=== PATIENT | female | born 1990 | race American Indian/Alaskan Native ===

== ENCOUNTER → 2016-07-12 | Outpatient (CLI) | payer OTHER ==
[2016-07-12 16:53] LABS: URINE APPEARANCE CLEAR (CLEAR); URINE BILIRUBIN NEG (NEG); URINE COLOR YELLOW; URINE NITRITE NEG (NEG); URINE PH 6.5 (4.5-7.5); URINE SPECIFIC GRAVITY 1.021 (1.000-1.030); UROBILINOGEN NEG (NEG)
[2016-07-12 17:00] LABS: MANUAL MICROSCOPIC REQUIRED? NO; REVIEW REQ? NO
== END | disposition home or self-care (01) ==
LOC: C.LABSPEC 15:53
PROVIDERS: ATTEND Obstetrics & Gynecology
DX: O99.330 Smoking (tobacco) complicating pregnancy, unspecified trimester (principal); Z3A.00 Weeks of gestation of pregnancy not specified; F17.200 Nicotine dependence, unspecified, uncomplicated

== ENCOUNTER → 2016-07-18 | Outpatient (CLI) | payer OTHER ==
[2016-07-18 17:30] LABS: BASO % 0.3 %; BASO ABS # 0.02 K/uL (0-0.2); COMPLETE YES; HEMATOCRIT 33.7 % (37-47); IG% 0.2 %; LYMPH % 18.2 %; LYMPH ABS # 1.21 K/uL (1.2-3.4); MEAN CELL VOLUME 91.8 fL (80-100); MEAN CORPUSCULAR HEMOGLOBIN 31.6 pg (25-34); MEAN CORPUSCULAR HGB CONC 34.4 g/dl (32-36); MEAN PLATELET VOLUME 10.8 fL (7.4-10.4); MONO % 6.8 %; NEUT % 72.5 %; PLATELET COUNT 180 K/uL (130-400); RED BLOOD COUNT 3.67 M/uL (4.2-5.4); WHITE BLOOD COUNT 6.65 K/uL (4.8-10.8)
[2016-07-21 01:21] LABS: CHLAMYDIA TRACH RNA*** NOT DETECTED (NOT DETECTED); GC (NEIS GONORRHOEAE)RNA** NOT DETECTED (NOT DETECTED)
== END | disposition home or self-care (01) ==
LOC: C.LAB1850 16:20
PROVIDERS: ATTEND Obstetrics & Gynecology
DX: Z34.01 Encounter for supervision of normal first pregnancy, first trimester (principal); O99.330 Smoking (tobacco) complicating pregnancy, unspecified trimester; F17.200 Nicotine dependence, unspecified, uncomplicated

== ENCOUNTER → 2016-07-18 | Outpatient (CLI) | payer OTHER | END | disposition home or self-care (01) | LOC: C.PAPS 10:36 | PROVIDERS: ATTEND Obstetrics & Gynecology | DX: Z12.4 Encounter for screening for malignant neoplasm of cervix (principal) ==

== ENCOUNTER → 2016-09-05 | Outpatient (CLI) | payer OTHER ==
[~2016-09-05] MED LIST: PRENTAB26 PO
[2016-09-05 18:44] LABS: GTGD 50 Grams
== END | disposition home or self-care (01) ==
LOC: C.LAB1850 15:02
PROVIDERS: ATTEND Obstetrics & Gynecology
DX: Z34.01 Encounter for supervision of normal first pregnancy, first trimester (principal)

== ENCOUNTER → 2016-11-28 | Outpatient (CLI) | payer OTHER ==
[2016-11-28 15:41] LABS: HEMATOCRIT 37.9 % (37-47)
[2016-11-28 18:15] LABS: GTGD 50 Grams
== END | disposition home or self-care (01) ==
LOC: C.LAB1850 13:51
PROVIDERS: ATTEND Obstetrics & Gynecology
DX: Z34.01 Encounter for supervision of normal first pregnancy, first trimester (principal)

== ENCOUNTER → 2016-11-28 | Outpatient (CLI) | payer OTHER ==
[2016-11-28 16:28] LABS: URINE APPEARANCE CLOUDY (CLEAR); URINE BILIRUBIN NEG (NEG); URINE COLOR YELLOW; URINE NITRITE NEG (NEG); URINE PH 8.5 (4.5-7.5); URINE SPECIFIC GRAVITY 1.017 (1.000-1.030); UROBILINOGEN NEG (NEG)
[2016-11-28 16:30] LABS: MANUAL MICROSCOPIC REQUIRED? NO; REVIEW REQ? NO
== END | disposition home or self-care (01) ==
LOC: C.LABSPEC 15:56
PROVIDERS: ATTEND Obstetrics & Gynecology
DX: Z34.01 Encounter for supervision of normal first pregnancy, first trimester (principal)

== ENCOUNTER → 2017-01-16 | Outpatient (CLI) | payer OTHER | END | disposition home or self-care (01) | LOC: C.LABSPEC 18:02 | PROVIDERS: ATTEND Obstetrics & Gynecology | DX: Z34.03 Encounter for supervision of normal first pregnancy, third trimester (principal) ==

== ENCOUNTER 2017-02-22 16:08 | Outpatient (CLI) | payer OTHER ==
[2017-02-22] MEDS ORDERED: PATIENT'S ALLERGY INFO NEEDS ENTERED SCH (17:30)
[2017-02-22] MEDS ORDERED: CALCIUM CARBONATE 500 MG CHEWABLE PO PRN (17:30)
[2017-02-23] MEDS ORDERED: PRENTAB26 PO (10:25)
== END 2017-02-22 17:55 | disposition home or self-care (01) ==
LOC: C.OPB 16:08 → C.LD 16:08 → C.OPB 17:55
PROVIDERS: ATTEND Obstetrics & Gynecology
DX: O48.0 Post-term pregnancy (principal); Z3A.41 41 weeks gestation of pregnancy

== ENCOUNTER 2017-02-23 09:03 | Inpatient (IN) | payer OTHER ==
[~2017-02-23] VITALS: Ht 172.7 cm; Wt 67.6 kg
[2017-02-23] MEDS ORDERED: OXYTOCIN 30 UNITS/500ML NSS IV PRN ×2 (09:30→18:00)
[2017-02-23 09:56] LABS: HEMATOCRIT 36.8 % (37-47); MEAN CELL VOLUME 95.3 fL (80-100); MEAN CORPUSCULAR HEMOGLOBIN 33.7 pg (25-34); MEAN CORPUSCULAR HGB CONC 35.3 g/dl (32-36); MEAN PLATELET VOLUME 11.1 fL (7.4-10.4); PLATELET COUNT 150 K/uL (130-400); RED BLOOD COUNT 3.86 M/uL (4.2-5.4); WHITE BLOOD COUNT 10.39 K/uL (4.8-10.8)
[2017-02-23 10:05] VITALS: Ht 172.7 cm; Wt 67.6 kg
[2017-02-23] MEDS: LACTATED RINGER'S 1000ML 500 ML IV PRN ×2 (10:16→14:15)
[2017-02-23] MEDS ORDERED: PRENTAB26 PO (10:25)
[2017-02-23] MEDS ORDERED: FENTANYL 2MCG/ML ROPIV 1.25MG/ML 100ML BAG EPI ONE (13:59)
[2017-02-23] MEDS ORDERED: FENTANYL CITRATE INJ 50 MCG/1 ML 2 ML VIAL ONE (13:59)
[2017-02-23] MEDS ORDERED: BUPIVACAINE 0.25% 30 ML VIAL ONE ×2 (13:59→16:01)
[2017-02-23] MEDS ORDERED: EpHEDrine SULFATE INJ 50 MG/ML AMP ONE (13:59)
[2017-02-23] MEDS ORDERED: LACTATED RINGER'S 1000ML 500 ML IV PRN (14:39)
[2017-02-23] MEDS ORDERED: NALOXONE HCL INJ 1 MG in SODIUM CHLORIDE 0.9% 1000ML 1,000 ML IV PRN (14:39)
[2017-02-23] MEDS ORDERED: DiphenhydrAMINE HCL 50 MG/ML VIAL IV PRN (14:45)
[2017-02-23] MEDS ORDERED: FENTANYL 2MCG/ML ROPIV 1.25MG/ML 100ML BAG EPI PRN ×2 (14:45→16:15)
[2017-02-23] MEDS ORDERED: NALOXONE HCL INJ 0.4 MG/1 ML VIAL/CARP IV PRN (14:45)
[2017-02-23] MEDS ORDERED: NALBUPHINE HCL INJ 10 MG/ML AMP IV PRN (14:45)
[2017-02-23] MEDS ORDERED: ONDANSETRON INJ 2 MG/ML 2 ML VIAL IV PRN (14:45)
[2017-02-23] MEDS ORDERED: EpHEDrine SULFATE INJ 50 MG/ML AMP IV PRN (14:45)
[2017-02-23] MEDS ORDERED: HYDROCORTISONE ACETATE 25 MG SUPP PR PRN (18:00)
[2017-02-23] MEDS ORDERED: ACETAMINOPHEN 325 MG TAB PO PRN (18:00)
[2017-02-23] MEDS ORDERED: BENZOCAINE 20% AER SPR 82.5 GM CAN EXT PRN (18:00)
[2017-02-23] MEDS ORDERED: SUPERCREAM 0.870 % 15GM JAR EXT PRN (18:00)
[2017-02-23] MEDS ORDERED: LANOLIN OINT EXT PRN ×2 (18:00)
[2017-02-23] MEDS ORDERED: ACETAMINOPHEN/CODEINE 300/30MG TAB PO PRN ×2 (18:00)
--- NOTE | 2017-02-23 18:11 | Vaginal Delivery Summary ---
Vaginal Delivery Summary 26 yo female EGA 41+3 weeks presented for induction of labor due to post- term . Pt progressed to complete under epidural anesthesia and then began to push, delivering a viable female from the JEREMIAH presentation. No nuchal cord. Nose and mouth were suctioned, a spontaneous cry was heard, and the was placed onto the mother's abdomen for stimulation. Delayed cord clamping was performed at the 30 second denise, then double clamped and cut. Cord blood obtained. The placenta was then delivered spontaneously intact with a three-vessel cord. Pitocin was given and the uterus became firm. The vagina was cleared of all clots and debris. The cervix, vagina, and perineum were inspected. A first degree right labial laceration as well as a right sulcus laceration were repaired with 3-O chromic suture. Excellent hemostasis was noted. Sponge, instrument, and needle counts were correct x2 at the conclusion of delivery. The mother and baby began recovery in the room, both in stable and good condition. APGARs were 9 and 9. EBL 300 mL. - Kosta, PGY1 Resident Tracking Resident Involvement: Resident Care Provided Care Provided: OB Delivery (vaginal delivery)
--- NOTE | 2017-02-23 18:48 | Anesthesia Procedure Note ---
Anesthesia Epidural Removal Nt Date & Time Feb 23, 2017 at 18:48 Vital Signs Pain Intensity: 0.0 Notes Mental Status: alert / awake / arousable, participated in evaluation Nausea / Vomiting: adequately controlled Pain: adequately controlled Airway Patency, RR, SpO2: stable & adequate BP & HR: stable & adequate Hydration State: stable & adequate Neuraxial Anesthesia: was administered Anesthetic Complications: no major complications apparent, pt satisfied with anesthetic care Epidural: removed without complications, with tip intact
[2017-02-23 20:05] VITALS: BP 103/79; PULSE 102; TEMP 36.6
[2017-02-23] MEDS: IBUPROFEN 600 MG TAB PO PRN (21:59)
[2017-02-23] MEDS: DOCUSATE SODIUM 100 MG CAP PO SCH (22:00)
[2017-02-23 23:20] VITALS: BP 120/64; PULSE 84; TEMP 36.8
--- NOTE | 2017-02-23 23:59 | DELIVERY SUMMARY ---
DATE OF OPERATION: 02/23/2017 The patient is a 26-year-old 1, P0 white female, EDC of 02/13/2017, who presented for induction of labor because of post term . She received a cervical balloon was placed the night before induction and presented at 4 cm dilated. She received Pitocin augmentation of labor. Membranes were ruptured at 5 cm. She received effective epidural analgesia and proceeded to full dilation. She pushed effectively for only 10 minutes over intact perineum. The infant was delivered without difficulty. There was vigorous crying and the infant was moving all 4 limbs, was placed on the mother's abdomen for further attention and stimulation. The cord was clamped after 30 seconds and cord blood was obtained. The placenta was then expressed intact with a 3-vessel cord. A first degree right labial laceration was repaired with 3-0 chromic as was a right sulcal laceration. Several additional [id number] stitches were placed in the sulcal tear to control subcutaneous bleeding. Hemostasis was excellent at the end of the case. The blood loss was 300 mL. Uterine bleeding was controlled with dilute Pitocin. I attest to the content of the Intraoperative Record and any orders documented therein. Any exceptions are noted below. MTDD
[2017-02-24 04:00] VITALS: BP 104/61; PULSE 67; TEMP 36.9
[2017-02-24] MEDS: IBUPROFEN 600 MG TAB PO PRN ×4 (04:09→20:22)
--- NOTE | 2017-02-24 06:20 | Progress Note ---
Subjective Feb 24, 2017. Subjective conversation w/ patient, physical exam Ambulation: ambulating normally Voiding: no voiding problems Passing Gas: Yes Diet Tolerance: Regular Diet Lochia: Moderate Feeding Type: Breast Feeding Review of Systems Breast: No see HPI, No breast lump, No change in shape, No nipple discharge, No breast pain, No problem reported Female : No see HPI, No dysuria, No urinary frequency, No hematuria, No incontinence, No abnormal vaginal bleeding, No vaginal discharge, No problem reported Objective Vital Signs Date Time Temp Pulse Resp B/P (MAP) Pulse Ox O2 Delivery O2 Flow Rate FiO2 02/24/17 04:00 36.9 67 18 104/61 (75) Room Air 02/23/17 23:20 36.8 84 84 120/64 (82) Room Air 02/23/17 23:20 Room Air 02/23/17 20:05 36.6 102 20 103/79 (87) Room Air 02/23/17 20:05 Room Air Physical Exam General Appearance: WELL-APPEARING, NO APPARENT DISTRESS Abdomen: non tender, soft Fundus: Firm, Non-Tender, Relation to Umbilicus (at U) Extremities: no calf tenderness Laboratory Results Last 24 Hours Test 02/23/17 09:39 02/24/17 04:44 White Blood Count 10.39 K/uL Red Blood Count 3.86 M/uL Hemoglobin 13.0 g/dL Hematocrit 36.8 % Mean Corpuscular Volume 95.3 fL Mean Corpuscular Hemoglobin 33.7 pg Mean Corpuscular Hemoglobin Concent 35.3 g/dl RDW Standard Deviation 44.0 fL RDW Coefficient of Variation 12.8 % Platelet Count 150 K/uL Mean Platelet Volume 11.1 fL Assessment and Plan Day#: 1 Continue Routine Care: stable course continue current care plan
[2017-02-24 06:40] LABS: HEMATOCRIT 34.9 % (37-47)
[2017-02-24 07:44] VITALS: BP 102/59; PULSE 72; TEMP 36.8; O2SAT 97
[2017-02-24] MEDS: DOCUSATE SODIUM 100 MG CAP PO SCH ×2 (09:07→20:21)
[2017-02-24] MEDS: PRENATAL VITAMIN TAB PO SCH (09:07)
[2017-02-24 12:05] VITALS: BP 110/73; PULSE 81; TEMP 36.6; O2SAT 98
[2017-02-24 15:45] VITALS: BP 108/73; PULSE 82; TEMP 36.8; O2SAT 99
[2017-02-24] MEDS ORDERED: BISACODYL 5 MG TABEC PO SCH (20:00)
[2017-02-24 23:25] VITALS: BP 97/56; PULSE 62; TEMP 36.6; O2SAT 98
[2017-02-25] MEDS ORDERED: BISACODYL 10 MG SUPP PR PRN (07:00)
[2017-02-25] MEDS: DOCUSATE SODIUM 100 MG CAP PO SCH (08:02)
[2017-02-25] MEDS: PRENATAL VITAMIN TAB PO SCH (08:02)
[2017-02-25] MEDS: IBUPROFEN 600 MG TAB PO PRN (08:04)
[2017-02-25 09:00] VITALS: BP 111/61; PULSE 87; TEMP 37.1
--- NOTE | 2017-02-25 09:32 | Progress Note ---
Subjective Feb 25, 2017. Subjective conversation w/ patient, physical exam Ambulation: ambulating normally Voiding: no voiding problems Passing Gas: Yes Diet Tolerance: Regular Diet Lochia: Moderate Feeding Type: Breast Feeding Review of Systems Constitutional: No problem reported Respiratory: No problem reported Cardiac: No problem reported Breast: No problem reported Abdomen: No problem reported Female : No problem reported Objective Vital Signs Date Time Temp Pulse Resp B/P (MAP) Pulse Ox O2 Delivery O2 Flow Rate FiO2 02/24/17 23:25 36.6 62 18 97/56 (70) 98 Room Air 02/24/17 23:25 98 Room Air 02/24/17 15:45 Room Air 02/24/17 15:45 36.8 82 20 108/73 (85) 99 Room Air 02/24/17 12:05 Room Air 02/24/17 12:05 36.6 81 18 110/73 (85) 98 Room Air Physical Exam General Appearance: WELL-APPEARING, NO APPARENT DISTRESS Respiratory/Chest: no respiratory distress Cardiovascular: regular rate, rhythm Abdomen: non tender, soft Fundus: Firm Extremities: normal inspection Assessment and Plan Post- Day#: 2 Continue Routine Care: Doing well, discharge to home today. Followup in office 6w. Discharge instructions discussed.
--- NOTE | 2017-02-25 09:33 | Discharge Instructions ---
Discharge Instructions Date of Service Feb 25, 2017. Admission Reason for Admission: Induction Discharge Discharge Diagnosis / Problem: vaginal delivery Discharge Goals Goal(s): Routine recovery after delivery Activity Recommendations Activity Limitations: per Instructions/Follow-up section . Instructions / Follow-Up Instructions / Follow-Up ACTIVITY RECOMMENDATIONS: * Gradual return to full activity over the next 2-3 weeks. * No lifting - nothing heavier than baby over the next 2-3 weeks. * Do not engage in vigorous exercise, sexual activity or sports until cleared by your physician. * Do not drive or operate any motorized equipment until cleared by your physician. * You may shower/bathe daily. MEDICATIONS: For discomfort or pain, you may use Acetaminophen (Tylenol), Ibuprofen (Advil), or Naproxen (Aleve) following the package directions. For constipation you may use Colace following the package directions. BREAST CARE: If you are not breast feeding: * Wear a supportive bra 24 hours a day for one to two weeks. * Avoid stimulating your breasts and nipples as much as possible during the first few weeks after delivery. * When taking a shower, have the warm water hit your back, not breasts. * When your breasts feel full, apply ice packs. Usually three to four times a day helps ease the discomfort. * Take a mild pain medication (Tylenol / Motrin) when you are uncomfortable. If breast feeding: * Use breast milk to lubricate nipples. Lansinoh cream may be used for sore nipples. You do not need to remove cream prior to breast feeding. If using a different brand of cream, check the label for directions regarding removal of cream prior to nursing. * Wear a supportive bra. * If having problems with breasts or breast feeding, call a fitness sales consultant or your health care provider. EPISIOTOMY CARE: After delivery, if you have an episiotomy (stitches), the following steps will ease discomfort and aid healing. * For the first 24 hours after delivery, place ice packs next to your episiotomy to help reduce swelling. * After the first 24 hour-period, sitz baths, either portable or in the tub, are suggested. A shower with a shower arm sprayed over the episiotomy may be comforting. * Christa care should be done after each voiding and bowel movement. Squirt warm water from a plastic bottle over the perineum (region of the body between the anus and urinary opening) and pat dry. * Use Dermoplast to ease discomfort. Shake container. Clawson directly over the episiotomy. Place a Tucks on a clean sanitary pad next to your episiotomy. SPECIAL CARE INSTRUCTIONS: When you are discharged from the hospital, it is important for you to follow the instructions listed below: * During the first week at home, you should be able to care for yourself and your baby. In addition, the usual light household activities are encouraged. * Limit your activities to the way you feel. Do not try to clean the house or move furniture. Be sensible. * If you actively engage in sports and have done so up until the time of your delivery, you may resume these activities as soon as you feel able. This may take up to one month or even longer. Use good judgment. * Continue to take your vitamins for at least six weeks after the of your baby. * Your diet need not be limited unless you were on a special diet before your delivery. Breast-feeding mothers need around 2500 calories per day and at least 64-80 ounces of fluid per day (8 to 10 glasses). * You should eat foods from the four major food groups. Crash diets or fad diets are to be avoided. Eating lean meats, fresh fruits and vegetables, low-fat dairy products, high fiber foods and a regular exercise program, will help you get back to your pre- weight without putting your health at risk. * Constipation is sometimes a problem after delivery. Take a mild laxative as needed. If breast feeding, Milk of Magnesia is acceptable to use. You may use a suppository or Fleets enema if no episiotomy. * A daily shower or tub bath is suggested. Be sure to thoroughly and gently dry the perineum. * A bloody vaginal discharge will usually continue until around four weeks post . A small amount of bleeding may continue for as long as six weeks. Vaginal discharge changes from the bright red bleeding after delivery to pink then brownish and finally yellowish-pink before becoming white and disappearing. * Bleeding may increase with activity. Your first period may come in 4-8 weeks. If you are breast feeding, your period may be delayed even longer. * [place] (sex) can begin whenever both you and your partner feel comfortable and do not have any form of genital infection. It is recommended that you wait at least six weeks for internal and external healing to occur. If you have questions, please talk to your health care practitioner. A condom should be used to prevent infection and . * Foreplay, gentle intercourse and lubrication is very important the first several times to prevent pain. A water-based lubricant such as K-Y jelly or Astroglide may be used. * If you have RH negative blood and your baby is RH positive, you will receive RHOGAM by injection prior to discharge. The nurse will give you a card to keep with you that has the date and place that you received RHOGAM after delivery. * During your care, you had a Rubella screen done to check for the presence of rubella antibodies in your blood. If your test was negative, you will receive a Rubella vaccine prior to discharge. This vaccine may cause a fever, soreness at the injection site and flu-like symptoms. If these symptoms persist, notify your health care practitioner. is not advised for one month after a Rubella vaccine. * Verbalizes understanding of car seat law as reviewed with patient nursing. * Car Seat hand-out given and reviewed with patient by nursing. * Shaken baby information reviewed with patient by nursing. Call you doctor if: * Heavy bleeding (saturating several pads an hour) or passing clots the size of your fist. * A fever >101 degrees F (38.3 degrees C) on two occasions four hours apart and /or chills. * Unusual pain in the pelvic or vaginal areas. * "Baby Blues" lasting longer than two weeks. If you have any questions or concerns, call your health care practitioner at . FOLLOW UP VISIT: * Please call the office at to schedule a 6 week examination. It is important you keep this appointment. It is important for you to make arrangements for either yearly or twice yearly check-ups thereafter. Current Hospital Diet Patient's current hospital diet: Regular OB Diet Discharge Diet Recommended Diet: Regular OB Diet Pending Studies Studies pending at discharge: no Medical Emergencies . Who to Call and When: Medical Emergencies: If at any time you feel your situation is an emergency, please call 911 immediately. . Non-Emergent Contact Non-Emergency issues call your: Primary Care Provider, Tuck Pointer Helper . . "Provider Documentation" section prepared by Savannah Mar. . VTE Core Measure Inpt VTE Proph given/why not?: Treatment not indicated
[2017-02-25 10:15] VITALS: BP_DIAS 61; PULSE 87; TEMP 37.1
== END 2017-02-25 10:25 | disposition home or self-care (01) | DRG 775 ==
LOC: C.LD 09:03 → C.OBG 20:15
PROVIDERS: ADMIT Obstetrics & Gynecology; ATTEND Obstetrics & Gynecology
PROC: 10E0XZZ Delivery of Products of Conception, External Approach (ICD-10-PCS; principal; 2017-02-23)
PROC: 0HQ9XZZ Repair Perineum Skin, External Approach (ICD-10-PCS; principal; 2017-02-23)
DX: O48.0 Post-term pregnancy (principal); O70.0 First degree perineal laceration during delivery; Z3A.41 41 weeks gestation of pregnancy; Z37.0 Single live birth

== ENCOUNTER 2020-08-20 08:08 | Inpatient (IN) ==
[2020-08-20] MEDS ORDERED: OXYTOCIN 30 UNITS/500 ML BAG IV PRN ×3 (08:51→16:02)
[2020-08-20] MEDS ORDERED: LACTATED RINGER'S 1,000 ML IV PRN (08:51)
[2020-08-20 09:36] LABS: Hematocrit (blood only) 36.2 % (37-47); Hemoglobin 12.3 g/dL (12.0-16.0); Mean Corpuscular Hemoglobin 32.1 pg (25-34); Mean Corpuscular Volume 94.5 fL (80-100); Mean Platelet Volume 10.9 fL (7.4-10.4); Platelet Count 196 K/uL (130-400); RDW Coefficient of Variation 12.7 % (11.5-14.5); RDW Standard Deviation 43.2 fL (36.4-46.3); Red Blood Count 3.83 M/uL (4.2-5.4); White Blood Count 7.66 K/uL (4.8-10.8)
--- NOTE | 2020-08-20 10:45 | History & Physical Report ---
Date of Service August 20, 2020 Assessment & Plan (1) Encounter for induction of labor: Admission and Anticipated Discharge Date Admission Date: August 20, 2020 IUP at 40+ weeks gestation presents for elective IOL begin pitocin induction of labor per protocol epidural when requested anticipate vaginal History of Present Illness Primary Care Provider: Delia Mobley MD Patient is a 29 yo white female who presents at 40 1/7 weeks for elective IOL. has jared uncomplicated so far. GBS (-) Blood type A (-) Allergies Allergy/AdvReac Type Severity Reaction Status Date / Time No Known Allergies Allergy Verified 08/20/20 08:58 Home Medications Medication Instructions Recorded Confirmed Type prenat.vits,adithya,ycs-[id number]-dizxn 1 tab PO DAILY 01/02/20 08/20/20 History Patient History Medical History Dehydration History of chicken pox Sinus tachycardia Surgical History S/P wisdom tooth extraction Family History Father Cataract Cancer squamous cell cancer of throat Denies family history of Ovarian cancer Breast cancer Colorectal cancer Social History Smoking Status: Current every day smoker Tobacco Type: Cigarettes Cigarettes Per Day: 10 cigs daily; Tobacco Cessation Education Requested by Patient: No Hx Alcohol Use: No Hx Substance Use: No Preferred Language: Nicaraguan Communication Ability: Effective Beliefs That Will Affect Care: None marital status: Single Current Living Situation: Significant Other Current Living Situation Comment: Rob, daughter (3) current occupational status: employed 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 Other Information That Helps Us Care for You: No Feels Safe at Home: Yes Safety Concerns: Feels Safe At This Time Assistive Devices: None Physical Exam Constitutional: WD/WN, vitals as above Respiratory: normal respiratory effort, lungs clear to auscultation Cardiovascular: RRR, no murmur, no edema Psychiatric: A+Ox3, euthymic affect Genitourinary: OB Exam Abdomen: + vertex and + estimated weight (7-8 pounds) Manual OB Exam: + cervical dilation 3 cm, + cervical effacement 70% and + station -1 OB Exam Monitor Tracing: + external FHT monitor used, + external uterine monitor used, + category I and + normal FHT variability Results & Data ([facility]) Vital Signs (Past 12 Hours) Vital Signs Temp Pulse Resp BP 08/20/20 09:54 83 116/58 L 08/20/20 09:27 91 H 111/58 L 08/20/20 08:22 98.4 F 20 08/20/20 08:21 107 H 128/84 Code Status & VTE Plan VTE Prophylaxis Plan VTE Prophylaxis will be ordered: No Coding Level of Care Code None Diagnoses Encounter for induction of labor Z34.90
[2020-08-20] MEDS ORDERED: CALCIUM CARBONATE 500 MG CHEWABLE TAB PO PRN (11:37)
[2020-08-20] MEDS ORDERED: CALCIUM CARBONATE 500 MG CHEWABLE TAB ONE (11:42)
[2020-08-20] MEDS ORDERED: SODIUM CHLORIDE 0.9% INJ 10 ML VIAL ONE (13:06)
[2020-08-20] MEDS ORDERED: BUPIVACAINE 0.25% 30 ML VIAL ONE (13:06)
[2020-08-20] MEDS ORDERED: ePHEDrine sulfate 50 MG/ML AMP ONE (13:06)
[2020-08-20] MEDS ORDERED: fentaNYL 2MCG/ML ROPIVACAINE 1.25MG/ML 100 ML BAG EPI ONE (13:07)
[2020-08-20] MEDS ORDERED: fentaNYL citrate 100 MCG/2 ML VIAL ONE (13:07)
[2020-08-20] MEDS ORDERED: diphenhydrAMINE 50 MG/ML VIAL IV PRN (13:12)
[2020-08-20] MEDS ORDERED: ONDANSETRON INJ 2 MG/ML 2 ML VIAL IV PRN (13:12)
[2020-08-20] MEDS ORDERED: NALOXONE HCL 1 MG in SODIUM CHLORIDE 0.9% 1000ML 1,000 ML IV PRN (13:12)
[2020-08-20] MEDS ORDERED: ePHEDrine sulfate 50 MG/ML AMP IV PRN (13:12)
[2020-08-20] MEDS ORDERED: NALOXONE HCL 0.4 MG/1 ML VIAL/CARP IV PRN (13:12)
[2020-08-20] MEDS ORDERED: fentaNYL 2MCG/ML ROPIVACAINE 1.25MG/ML 100 ML BAG EPI PRN (13:12)
--- NOTE | 2020-08-20 13:13 | Anesthesiology Consultation ---
Date of Service August 20, 2020 Assessment & Plan (1) Encounter for pre-operative examination: Chart Review Chart Review: Patient NOT seen in Pre Admission Testing and Acceptable Risk for Labor Epidural Consults Requested none History Height/Weight Height: 5 ft 8 in Weight: 64.41 kg Allergies Allergy/AdvReac Type Severity Reaction Status Date / Time No Known Allergies Allergy Verified 08/20/20 08:58 Medications Home Medications Medication Instructions Recorded Confirmed Last Taken prenat.vits,adithya,[id number]-[id number] 1 tab PO DAILY 01/02/20 08/20/20 08/19/20 22:00 Active Medications Generic Name Dose Route Start Last Admin Trade Name Freq PRN Reason Stop Dose Admin Oxytocin 30 units in 500 mls @ 11 mls/hr 08/20/20 08:53 08/20/20 12:50 Pitocin IV 08/22/20 08:52 0.66 units/hr .Q24H PRN 11 mls/hr Labor Induction/Augmentation Titration Protocol 0.66 UNITS/HR Lactated Ringer's 1,000 mls @ 125 mls/hr 08/20/20 08:51 08/20/20 09:59 Lr IV 08/22/20 08:50 125 mls/hr .Q8H PRN Administration L&D Protocol Protocol Past Medical History Medical History Dehydration History of chicken pox Sinus tachycardia Exercise / Class Metabolic Activity II 4-5 Yardwork/Stairs/Walk up hill Past Family History Family History Father Cataract Cancer squamous cell cancer of throat Denies family history of Ovarian cancer Breast cancer Colorectal cancer Past Surgical History Surgical History S/P wisdom tooth extraction Past Anesthesia History No Hx of Anesthesia Complications and No Family Hx of Anesthesia Complications History of PONV No Hx of PONV Social History Smoking Status: Current every day smoker tobacco type: cigarettes Smoking cigarettes per day: 10 cigs daily Do You Dip or Chew Tobacco: No Hx Alcohol Use: No Hx Substance Use: No Physical Exam Vital Signs Last Vital Signs Temp 36.5 C 08/20/20 11:12 Pulse 79 04/02/21 12:20 Resp 18 08/20/20 11:12 BP 133/71 08/20/20 12:20 Testing Laboratory Results 08/20/20 09:25
[2020-08-20] MEDS: FAMOTIDINE 20 MG TAB PO SCH (13:49)
[2020-08-20] MEDS ORDERED: NURSING L&D Epidural Breakthrough Pain Update ONE (14:45)
[2020-08-20] MEDS ORDERED: SUPERCREAM 0.870% 15 GM JAR EXT PRN (16:02)
[2020-08-20] MEDS ORDERED: oxyCODONE/ACETAMINOPHEN 5mg/325mg TAB PO PRN (16:02)
[2020-08-20] MEDS ORDERED: bisacodyL 10 MG SUPP PR PRN (16:02)
[2020-08-20] MEDS ORDERED: DIPHTHERIA/TETANUS/PERTUSSIS 0.5 ML SYR/VIAL IM ONE (16:02)
[2020-08-20] MEDS ORDERED: BENZOCAINE 20% AER SPR 82.5 GM CAN EXT PRN (16:02)
[2020-08-20] MEDS ORDERED: HYDROCORTISONE ACETATE 25 MG SUPP PR PRN (16:02)
--- NOTE | 2020-08-20 16:40 | Delivery Summary ---
Vaginal Delivery Summary Date of Service August 20, 2020 Patient is a 29-year-old 2 para 1-0-0-1 white female who presented for elective induction of labor. Pitocin augmentation of her labor was begun per protocol. She received effective epidural analgesia. She was then ruptured for clear fluid and rapidly went to full dilation. She pushed effectively over intact perineum for delivery of a viable male in the direct occiput posterior presentation. The rest of the delivered easily and was placed on the mother's abdomen for further attention and drying. The was moving all 4 limbs and breathing effectively. The placenta was expressed intact with a three-vessel cord. A first-degree perineal laceration was repaired with 3-0 chromic in the usual fashion. Estimated blood loss was 200 cc. bleeding was controlled with dilute Pitocin. Mother and infant were doing well after delivery. Vaginal Delivery Summary and 1st Degree [facility] [place] Vaginal Delivery Charge Vaginal Delivery Codes: 43691 global code for the antepartum, delivery, and post- Delivery Type Details: and 1st Degree [facility]
--- NOTE | 2020-08-20 18:17 | Anesthesia Procedure Note ---
Date of Service August 20, 2020 Anesthesia Post Epidural Note Vital Signs Vital Signs: Temp Pulse Resp BP Pulse Ox 36.4 C L 76 20 109/55 L 99 08/20/20 16:43 08/20/20 18:13 08/20/20 17:28 08/20/20 18:13 08/20/20 15:43 Pain Intensity Left Hip: Pain Intensity: 9 Notes Mental Status: alert / awake / arousable and participated in evaluation Patient Amnestic to Procedure: No Nausea / Vomiting: adequately controlled Pain: adequately controlled Airway Patency, RR, SpO2: stable & adequate BP & HR: stable & adequate Hydration State: stable & adequate Neuraxial Anesthesia: was administered and sensory block is resolving Anesthetic Complications: no major complications apparent and Pt Satisfied with anesthetic care Epidural: Removed without complications and With tip intact
[2020-08-20] MEDS: IBUPROFEN 600 MG TAB PO PRN (19:59)
[2020-08-20] MEDS ORDERED: FAMOTIDINE 40 MG TABLET PO SCH (21:00)
[2020-08-20] MEDS: DOCUSATE SODIUM 100 MG CAP PO SCH (21:15)
[2020-08-20] MEDS: ACETAMINOPHEN 325 MG TAB PO PRN (23:13)
[2020-08-21] MEDS: IBUPROFEN 600 MG TAB PO PRN ×3 (03:05→12:27)
[2020-08-21] MEDS: ACETAMINOPHEN 325 MG TAB PO PRN ×2 (05:54→14:13)
[2020-08-21 06:38] LABS: Hematocrit (blood only) 34.1 % (37-47); Hemoglobin 12.1 g/dL (12.0-16.0); Mean Corpuscular Hemoglobin 33.1 pg (25-34); Mean Corpuscular Hgb Conc 35.5 g/dL (32-36); Mean Corpuscular Volume 93.2 fL (80-100); Mean Platelet Volume 11.6 fL (7.4-10.4); Platelet Count 196 K/uL (130-400); RDW Coefficient of Variation 12.6 % (11.5-14.5); RDW Standard Deviation 42.4 fL (36.4-46.3); Red Blood Count 3.66 M/uL (4.2-5.4); White Blood Count 10.61 K/uL (4.8-10.8)
[2020-08-21] MEDS ORDERED: PRENATAL VITAMIN 1 TAB PO SCH (08:00)
--- NOTE | 2020-08-21 08:18 | Obstetrical Progress Note ---
Date of Service August 21, 2020 Assessment & Plan (1) Encounter for care and examination after delivery: satisfactory course continue current care plan Subjective Ambulation: ambulating normally Voiding: no voiding problems Passing Gas:: Yes Diet Tolerance:: regular diet Lochia:: Small Feeding Type:: breast feeding Physical Exam Constitutional WD/WN, vitals as above Psychiatric A+Ox3, euthymic affect Genitourinary OB Exam Abdomen: + fundal height (at U) Fundus: + firm and + relation to umbilicus Results & Data ([facility]) Vital Signs (Past 12 Hours) Vital Signs Temp Pulse Resp BP Pulse Ox 08/21/20 03:27 98.1 F 57 L 16 108/60 97 08/20/20 23:30 97.5 F L 75 18 103/64 99
[2020-08-21] MEDS: DOCUSATE SODIUM 100 MG CAP PO SCH (08:29)
[2020-08-21] MEDS: FAMOTIDINE 20 MG TAB PO SCH (08:36)
[2020-08-21] MEDS ORDERED: bisacodyL 5 MG TABEC PO SCH (20:00)
== END 2020-08-21 16:29 | disposition home or self-care (01) | DRG 807 ==
LOC: 4S1 08:08 → 4S2 18:45